=== PATIENT | male | born 1935 | race Caucasian/White ===

== ENCOUNTER 2017-12-03 22:18 | Emergency (ER) | payer OTHER ==
[~2017-12-03] VITALS: Ht 177.8 cm; Wt 90.7 kg
[2017-12-03 22:31] VITALS: Ht 177.8 cm; Wt 90.7 kg
[2017-12-04 00:27] VITALS: BP 105/61
== END 2017-12-04 01:31 | disposition home or self-care (01) ==
LOC: ED 22:18
DX: S42.291A Other displaced fracture of upper end of right humerus, initial encounter for closed fracture (principal); I10 Essential (primary) hypertension; E11.9 Type 2 diabetes mellitus without complications; F32.9 Major depressive disorder, single episode, unspecified; F03.90 Unspecified dementia, unspecified severity, without behavioral disturbance, psychotic disturbance, mood disturbance, and anxiety; Z88.0 Allergy status to penicillin; W06.XXXA Fall from bed, initial encounter; Y93.89 Activity, other specified; Y92.098 Other place in other non-institutional residence as the place of occurrence of the external cause; Y99.8 Other external cause status
CPT/HCPCS: J1885; J2405; J3010; Q0092

== ENCOUNTER 2018-01-23 22:27 | Emergency (ER) | payer OTHER ==
[~2018-01-23] VITALS: Ht 177.8 cm; Wt 90.7 kg
[2018-01-23 22:34] VITALS: Ht 177.8 cm; Wt 90.7 kg
[2018-01-24] VITALS: BP 106/63
== END 2018-01-24 | disposition home or self-care (01) ==
LOC: ED 22:27
DX: S09.90XA Unspecified injury of head, initial encounter (principal); I10 Essential (primary) hypertension; E11.9 Type 2 diabetes mellitus without complications; J44.9 Chronic obstructive pulmonary disease, unspecified; Z88.0 Allergy status to penicillin; Z79.84 Long term (current) use of oral hypoglycemic drugs; Z79.899 Other long term (current) drug therapy; W18.30XA Fall on same level, unspecified, initial encounter; Y93.89 Activity, other specified; Y99.8 Other external cause status; Y92.89 Other specified places as the place of occurrence of the external cause

== ENCOUNTER 2018-01-31 16:35 | Inpatient (IN) | payer OTHER ==
[~2018-01-31] VITALS: Ht 177.8 cm; Wt 88.9 kg
[2018-01-31 16:51] VITALS: Ht 177.8 cm; Wt 88.9 kg
[2018-01-31 18:16] LABS: PLATELET COUNT 355 x10^3mcL (130-400); RED CELL DISTRIBUTION WIDTH 14.4 % (11.5-14.5)
[2018-01-31 18:19] LABS: BASOPHIL % 0 % (0-2)
[2018-01-31 18:28] LABS: CALCIUM 8.9 mg/dL (8.5-10.1); CARBON DIOXIDE 24.6 mmol/L (21-32); CHLORIDE SERUM 96 mmol/L (98-107); CREATININE SERUM 1.4 mg/dL (0.7-1.3); GLUCOSE SERUM 130 mg/dL (74-106); POTASSIUM SERUM 3.3 mmol/L (3.5-5.1); SODIUM SERUM 129 mmol/L (136-145)
[2018-01-31 18:38] LABS: ALKALINE PHOSPHATASE 74 U/L (46-116); ALT/SGPT 28 U/L (16-63); AST/SGOT 15 U/L (15-37); BILIRUBIN TOTAL 0.5 mg/dL (0.20-1.00); TOTAL PROTEIN, SERUM 6.7 g/dL (6.4-8.2)
[2018-01-31 18:39] LABS: ALBUMIN 2.5 g/dL (3.4-5.0)
[2018-01-31 18:45] LABS: CK-MB < 0.5 ng/mL (0-3.6); CREATINE KINASE 33 U/L (39-308)
[2018-01-31] MEDS ORDERED: BUSPIRONE HCL10 MG (19:18)
[2018-01-31] MEDS ORDERED: DORZOLAMIDE HYD10 ML OD (19:18)
[2018-01-31] MEDS ORDERED: COLACE100 MG PO (19:18)
[2018-01-31] MEDS ORDERED: LATANOPROST2.5 ML OP (19:19)
[2018-01-31] MEDS ORDERED: LEVOTHYROXIN0.025 M2 PO (19:19)
[2018-01-31] MEDS ORDERED: GLIPIZIDE5 M2 PO (19:19)
[2018-01-31] MEDS ORDERED: GABAPENTIN400 M1 PO (19:19)
[2018-01-31] MEDS ORDERED: METFORMIN HYDR500 M1 PO (19:19)
[2018-01-31] MEDS ORDERED: COZAAR100 MG PO (19:19)
[2018-01-31] MEDS ORDERED: PRA40 PO (19:20)
[2018-01-31] MEDS ORDERED: LOVAZA1 G1 PO (19:20)
[2018-01-31] MEDS ORDERED: ACT30 PO (19:20)
[2018-01-31] MEDS ORDERED: ZOLOFT100 MG PO (19:20)
[2018-01-31] MEDS ORDERED: FLONS (19:21)
[2018-01-31] MEDS ORDERED: TAMSULOSIN HYD0.4 M1 PO (19:21)
[2018-01-31] MEDS ORDERED: MUCINEX600 MG (19:22)
[2018-01-31] MEDS ORDERED: ACETAMINOPHEN-H1 TA1 PO (19:22)
[2018-01-31] MEDS ORDERED: IBUPROFEN400 MG PO (19:22)
[2018-01-31] MEDS ORDERED: MAPAP500 M3 (19:22)
[2018-01-31 20:53] VITALS: BP 114/45
[2018-01-31 21:48] LABS: MAGNESIUM 1.7 mg/dL (1.8-2.4); PHOSPHOROUS 3.4 mg/dL (2.5-4.9)
[2018-01-31 21:49] LABS: CHOLESTEROL/HDL RATIO 4.8
[2018-01-31 21:54] LABS: FREE T4 1.48 ng/dL (0.76-1.46); FREE THYROXINE INDEX 2.4 ug/dL (1.4-4.5); T3 TOTAL 0.64 ng/mL
[2018-01-31 22:21] LABS: RED BLOOD CELLS 3.17 M/mm3 (4.52-5.90)
[2018-01-31 22:27] LABS: IRON 14 ug/dL (65-170); TOTAL IRON BINDING CAPACITY 142 ug/dL (250-450)
[2018-02-01] VITALS (7 sets, daily range): BP systolic 103–123; BP diastolic 43–71
[2018-02-01 01:27] LABS: UA SPECIFIC GRAVITY <=1.005 (1.005-1.035); microscopic required? YES; urine erythrocyte 2+ (NEGATIVE)
[2018-02-01 06:27] LABS: BASOPHIL % 0.1 % (0-2); PLATELET COUNT 304 x10^3mcL (130-400)
[2018-02-01 06:33] LABS: CALCIUM 8.8 mg/dL (8.5-10.1); CARBON DIOXIDE 23.7 mmol/L (21-32); CHLORIDE SERUM 98 mmol/L (98-107); GLUCOSE SERUM 127 mg/dL (74-106); MAGNESIUM 1.4 mg/dL (1.8-2.4); PHOSPHOROUS 4.3 mg/dL (2.5-4.9); POTASSIUM SERUM 3.7 mmol/L (3.5-5.1); SODIUM SERUM 134 mmol/L (136-145)
[2018-02-02 05:29] VITALS: BP 128/57
[2018-02-02 06:24] LABS: BASOPHIL % 0.2 % (0-2); PLATELET COUNT 309 x10^3mcL (130-400)
[2018-02-02 07:03] LABS: CALCIUM 8.6 mg/dL (8.5-10.1); CARBON DIOXIDE 22.7 mmol/L (21-32); CHLORIDE SERUM 100 mmol/L (98-107); CREATININE SERUM 1.2 mg/dL (0.7-1.3); GLUCOSE SERUM 136 mg/dL (74-106); PHOSPHOROUS 3.8 mg/dL (2.5-4.9); POTASSIUM SERUM 3.8 mmol/L (3.5-5.1); SODIUM SERUM 135 mmol/L (136-145)
[2018-02-02 07:06] LABS: RED CELL DISTRIBUTION WIDTH 14.7 % (11.5-14.5)
[2018-02-02 09:33] VITALS: BP 119/59
[2018-02-02 16:28] VITALS: BP 113/49
[2018-02-02 19:25] VITALS: BP 106/88
[2018-02-03 06:17] VITALS: BP 116/55
[2018-02-03 06:27] LABS: PLATELET COUNT 308 x10^3mcL (130-400)
[2018-02-03 06:43] LABS: CALCIUM 8.4 mg/dL (8.5-10.1); CARBON DIOXIDE 22.4 mmol/L (21-32); CHLORIDE SERUM 100 mmol/L (98-107); CREATININE SERUM 1.2 mg/dL (0.7-1.3); GLUCOSE SERUM 171 mg/dL (74-106); POTASSIUM SERUM 3.7 mmol/L (3.5-5.1); SODIUM SERUM 133 mmol/L (136-145)
[2018-02-03 07:18] LABS: BASOPHIL % 0 % (0-2); RED CELL DISTRIBUTION WIDTH 14.6 % (11.5-14.5)
[2018-02-03 09:12] VITALS: BP 115/51
[2018-02-03] MEDS ORDERED: LEV500PM IV (13:40)
[2018-02-03] MEDS ORDERED: CLINDAMYCIN PHO60 M1 TOP (13:40)
[2018-02-03 16:58] VITALS: BP 115/54
[2018-02-03 18:07] VITALS: BP 115/54
== END 2018-02-03 18:43 | disposition hospice, home (50) | DRG 871 ==
LOC: ED 16:35 → DU 19:44 → MU 02-02 09:23
PROVIDERS: Emergency Medicine; Family Medicine
PROC: 0T9B70Z Drainage of Bladder with Drainage Device, Via Natural or Artificial Opening (ICD-10-PCS; principal; 2018-02-01)
DX: A41.9 Sepsis, unspecified organism (principal); J69.0 Pneumonitis due to inhalation of food and vomit; N17.0 Acute kidney failure with tubular necrosis; G93.41 Metabolic encephalopathy; E43 Unspecified severe protein-calorie malnutrition; J96.01 Acute respiratory failure with hypoxia; E87.1 Hypo-osmolality and hyponatremia; C80.0 Disseminated malignant neoplasm, unspecified; J44.1 Chronic obstructive pulmonary disease with (acute) exacerbation; M84.421A Pathological fracture, right humerus, initial encounter for fracture; I10 Essential (primary) hypertension; E03.9 Hypothyroidism, unspecified; F32.9 Major depressive disorder, single episode, unspecified; E86.0 Dehydration; E78.00 Pure hypercholesterolemia, unspecified; Z66 Do not resuscitate; E11.65 Type 2 diabetes mellitus with hyperglycemia; D64.9 Anemia, unspecified; E87.6 Hypokalemia; E83.42 Hypomagnesemia; E78.5 Hyperlipidemia, unspecified; N40.0 Benign prostatic hyperplasia without lower urinary tract symptoms; E11.40 Type 2 diabetes mellitus with diabetic neuropathy, unspecified; F41.9 Anxiety disorder, unspecified; Z53.29 Procedure and treatment not carried out because of patient's decision for other reasons; R31.9 Hematuria, unspecified; H40.9 Unspecified glaucoma; F02.80 Dementia in other diseases classified elsewhere, unspecified severity, without behavioral disturbance, psychotic disturbance, mood disturbance, and anxiety; G30.9 Alzheimer's disease, unspecified; Z68.28 Body mass index [BMI] 28.0-28.9, adult; Z79.84 Long term (current) use of oral hypoglycemic drugs; Z79.899 Other long term (current) drug therapy; Z87.891 Personal history of nicotine dependence
CPT/HCPCS: 36600; 82962; 83880; 84439; 87804; 94150; 97110-GP; 97116-GP; 97530-GP; J1940; J1956; J3475; J3490; J7030; J7040; J7050; J7613; J7620; J7644; Q0092; Q9967